=== PATIENT | male | born 1950 | race Caucasian/White ===

== ENCOUNTER 2024-04-08 17:54 | Emergency (ER) | payer SELFPAY ==
[2024-04-08 17:56] VITALS: BP 197/105
[2024-04-08] MEDS: NORCO 5/325 1 TABLET PO (22:41)
[2024-04-08] MEDS: KEFLEX 500 MG PO (22:41)
[2024-04-08 22:42] VITALS: BP 176/87
--- NOTE | 2024-04-08 23:27 | ED.SKININJ ---
HPI-Injury
General
Chief Complaint: Skin Surface Trauma
Source: patient
Exam Limitations: none
Time Seen by Provider: 04/08/24 20:18
Nursing documentation reviewed up to this point in time: agreed with
History of Present Illness-Injury
Is this injury a work related problem?: No
Is pt an associate of [facility]?: No
Initial Injury comments:
Accidetally cut his leg on his truck. Sustained a laceration to right lower leg. Injury occurred just [employer]
Past History
Past History
ED Past Medical History: None
Review of Systems
Review of Systems
Allergies reviewed?: Yes
All Other Systems: ROS reviewed and negative except as documented in HPI and ROS
Constitutional: Reports no symptoms
Musculoskeletal: Reports no symptoms
Skin: Reports other (large laceration to right lower leg)
Neurological: Reports no symptoms
Skin Exam
Laceration
Right Lower Leg:
Length in cm: 8.5
Orientation: diagonal
Type of Laceration: simple
Any active bleeding?: no active bleeding
Distal skin color and temperature: normal-warm & good color
Normal distal neurovascular exam: Yes
Range of motion: full
Phy Exam
General Physical Exam
General Presentation: well appearing and no apparent distress
General age: appears stated age
General Skin: warm and dry
General Habitus: normal
Musculoskeletal Exam
Musculoskeletal Exam: full ROM and neuro vasc intact
Skin Exam
Skin Exam: normal color, warm/dry and no rash
Psychiatric Exam
Psychiatric Exam: normal mood/affect
Course
Orders/Labs/Results
Orders:
Orders
04/08/24 21:10
Lidocaine/Epinephrine/Tetracai [Let Topical Anesthetic Gel] 3 ml .ROUTE .[facility]
04/08/24 22:21
Cephalexin Monohydrate [Keflex] 500 mg PO NOW STA
Hydrocodone 5/APAP 325 [[place] 5/325] 1 tablet PO NOW STA
Vital Signs
Initial and Last Documented VS:
Initial Vital Signs
Temp Pulse Resp BP Pulse Ox
97.7 F 66 16 197/105 98
04/08/24 17:56 04/08/24 17:56 04/08/24 17:56 04/08/24 17:56 04/08/24 17:56
Last Documented Vital Signs
Temp Pulse Resp BP Pulse Ox
97.7 F 69 16 176/87 98
04/08/24 17:56 04/08/24 22:42 04/08/24 17:56 04/08/24 22:42 04/08/24 22:42
Procedures
Laceration Closure
Right Lower Leg:
Status of Wound: clean
Description of Wound Edges: sharp
Preparation: cleaned with saline and cleaned with Betadine
Anesthesia: 1% Lidocaine with epi
Wound exploration: explored to base- no FB and no tendon involvement
Type of Closure: single layer closure
Skin Closure Material: 4-0 prolene
*Critical Care Note
Total Time (30-74mins, 75-104mins- exclusive of procedures): Not Applicable
ED Attending Note
-
Portions of this chart may have been created with voice recognition software.� Occasional wrong word or��sound alike� substitutions may have occurred due to the inherent limitations of voice recognition software.
Discharge Plan
Departure
Patient Disposition: Home (Routine Discharge)
Date of Disposition: 04/08/24
Time of Disposition: 22:24
Patient with high blood pressure during this ER visit?: No
Condition: Good
Covid-19: Not Applicable
Discharge Problem:
Laceration of leg
Instructions: Laceration Repair With Stitches (DC)
Prescriptions:
New
cephalexin 500 mg capsule
500 mg PO BID 10 Days Qty: 20 0RF
hydrocodone-acetaminophen 5-325 mg tablet
1 tab PO Q4H PRN (Reason: Pain) Qty: 10 0RF
Referrals:
UNKNOWN - PT DOES,NOT KNOW [Family Provider] -
Activity Restrictions/Additional Instructions:
Sutures can be removed by your family doctor in 7-10 days.
Interventions
Interventions:
*Risk Screen - Suicide Last Done: 04/08/24 17:56
*General Assessment Last Done: 04/08/24 17:56
*Neglect/Abuse Screening Last Done: 04/08/24 17:56
*ED COVID-19 Vaccine History Last Done: 04/08/24 17:56
*Nursing Disposition Last Done: 04/08/24 22:42
ED-Skin Assessment Last Done: 04/08/24 21:00
Discharge Date and Time
Discharge Date/Time: 04/08/24 22:43
Print Language: SINHALA
== END 2024-04-08 22:43 | disposition home or self-care (01) ==
LOC: EMR 17:54
PROVIDERS: EMERGENCY PHYSICIAN Student in an Organized Health Care Education/Training Program
DX: S81.811A Laceration without foreign body, right lower leg, initial encounter (principal); W26.8XXA Contact with other sharp object(s), not elsewhere classified, initial encounter
CPT/HCPCS: 99283; 12004